=== PATIENT | female | born 1965 | race Two or more races ===

== ENCOUNTER → 2024-08-25 | Outpatient (CLI) | payer BC, SELFPAY ==
--- NOTE | 2024-08-25 09:39 | XR_ITS ---
Examination: Sinus series 4 views TECHNIQUE: Nikita Cast lateral submentovertex sinus series 4 views Date and time: August 25, 2024 0953 hours INDICATIONS: Sinus pressure and pain beginning 3 months ago FINDINGS: Mild opacity frontal ethmoid air cells Underdeveloped sphenoid air cells. No fluid levels No retention cysts IMPRESSION: Mild chronic ethmoid frontal sinusitis
== END | disposition home or self-care (01) ==
LOC: CDIM 09:32
PROVIDERS: PCP Family Medicine; Referring Provider Family Medicine; Visit Provider Family Medicine
DX: J32.1 Chronic frontal sinusitis (principal)
CPT/HCPCS: 70220

== ENCOUNTER → 2024-10-25 | Outpatient (CLI) | payer BC, SELFPAY ==
--- NOTE | 2024-10-25 08:30 | XR_ITS ---
Examination: CT maxillofacial, without intravenous contrast. 2-D sagittal reconstructions. 3-D reconstructions. Date and time of exam:October 25, 2024, 0932 hours INDICATIONS: Sinus pressure and pain beginning 3 years ago CTDI: vol (mGy):6.68 DLP: (mGycm):897 Technique: Multiple axial images of maxillofacial region, 3.0 mm slice thickness. 2-D sagittal and coronal reconstructions. 3-D reconstructions. Low dose protocols were performed. One or more of the following dose reduction techniques were used; automated exposure control, adjustment of the mA and/or KV according to patient size, use of iterative reconstruction technique. Findings: Underdeveloped right frontal air cells Mild mucosal thickening ethmoid air cells No occlusion ostiomeatal complexes Mucosal thickening in the 1 mm range in the maxillary antra Sphenoid air cells are clear Mild hypertrophy inferior nasal turbinates No significant deviation nasal septum IMPRESSION: Minimal chronic sinusitis.
== END | disposition home or self-care (01) ==
LOC: CCTX 08:45
PROVIDERS: PCP Family Medicine; Referring Provider Family Medicine; Visit Provider Family Medicine
DX: J32.9 Chronic sinusitis, unspecified (principal)
CPT/HCPCS: 70486

== ENCOUNTER → 2024-10-25 | Outpatient (CLI) | payer BC, SELFPAY ==
[2024-10-26 10:39] LABS: BVAG Candida Negative (Negative); Bacterial Vaginosis Markers Negative (Negative); Candida glabrata Negative (Negative); Candida krusei PCR Negative (Negative); Trichomonas Negative (Negative)
== END | disposition home or self-care (01) ==
LOC: SLDO 14:46
PROVIDERS: Referring Provider Physician Assistant Medical; Visit Provider Physician Assistant Medical
DX: B37.89 Other sites of candidiasis (principal); N76.0 Acute vaginitis; A59.01 Trichomonal vulvovaginitis
CPT/HCPCS: 81514

== ENCOUNTER → 2024-11-01 | Outpatient (CLI) | payer BC, SELFPAY ==
--- NOTE | 2024-11-01 15:33 | XR_ITS ---
Examination: Breast ultrasound, unilateral, left complete Date and time of exam: November 01, 2024 1546 hours INDICATIONS: Left breast pain 3 weeks, bilateral breast sonography August 14, 2023 12:30 cyst Technique: Real-time morrow scale ultrasonographic imaging performed left breast including all 4 quadrants as well as nipple retroareolar and axillary region. Findings: 12:00 nodule indistinct margins taller than wide 10 x 8 x 5 mm Retroareolar cyst 11 x 12 mm IMPRESSION: BI-RADS Category 4: Suspicious for malignancy Suspicious nodule 12:00 position left breast, biopsy is needed to exclude breast carcinoma, this mass is amenable to ultrasound-guided breast biopsy for diagnosis
--- NOTE | 2024-11-01 15:35 | XR_ITS ---
Examination: Diagnostic digital mammography, bilateral Computer aided detection 3-D breast Tomosynthesis, bilateral Date and time of exam: November 01, 2024 1559 hours INDICATIONS: Patient states left breast pain 3 weeks Compared to mammograms dating to December 26, 2017 Technique: Nonmagnified MLO, CC views of the breasts to been obtained, reconstructed from 3-D Tomosynthesis images. R2 computer aided detection program utilized for evaluation of suspicious masses and/or abnormal calcifications. 3-D Tomosynthesis images obtained. Findings: The breasts are heterogeneously dense, which may obscure small masses Bilateral skin lesions 10 mm nodule 12:00 position left breast, better demonstrated on the ultrasound study today IMPRESSION: BI-RADS Category 4: Suspicious for malignancy Suspicious mass 12:00 position left breast, best demonstrated on left breast sonogram today, biopsy is needed to exclude breast carcinoma, this mass is amenable to ultrasound-guided breast biopsy for diagnosis
== END | disposition home or self-care (01) ==
PROVIDERS: PCP Family Medicine; Referring Provider Family Medicine; Visit Provider Family Medicine
DX: R92.343 Mammographic extreme density, bilateral breasts (principal); N63.25 Unspecified lump in the left breast, overlapping quadrants
CPT/HCPCS: 76641; 77062; 77066; G0279